=== PATIENT | female | born 1955 | race Caucasian/White ===

== ENCOUNTER 2020-07-03 10:50 | Outpatient (CLI) | payer MEDICARE, OTHER ==
--- NOTE | 2020-07-03 15:02 | NM ---
WHOLE BODY BONE SCAN: HISTORY: Concern for osseous metastatic disease RADIOPHARMACEUTICAL: 29.4 mCi technetium 99m-MDP injected intravenously COMPARISON:CT of the abdomen dated 02/13/[address] abdomen pelvis dated 02/04/2011 CORRELATION: None FINDINGS: No suspicious radiotracer cannulation is seen within the skeletal structures. There is degenerative a ctivity involving the shoulders, sternoclavicular joints, knees, ankle and feet. Urinary activity is evident. On the comparison examination there are small bone islands involving the right acetabulum , proximal right femur and proximal left femur. There are small bone islands within the posterior left ilium. No appreciable uptake is seen in the region of these small bone islands. IMPRESSION: No scintigraphic evidence of osseous metastatic disease.
== END 2020-07-03 10:51 | disposition home or self-care (01) ==
LOC: NM 10:50
PROVIDERS: ATTEND Emergency Medicine Sports Medicine
DX: M89.8X6 Other specified disorders of bone, lower leg (principal); M89.8X5 Other specified disorders of bone, thigh
CPT/HCPCS: 78306; A9503